=== PATIENT | male | born 1985 | race African-American/Black ===

== ENCOUNTER 2017-01-20 02:01 | Emergency (ER) | payer SELFPAY ==
[2017-01-20] MEDS ORDERED: KETOROLAC TROMETHAMINE 60 MG/2 ML VIAL IM ONE (02:19)
[2017-01-20] MEDS ORDERED: DIAZEPAM 5 MG/ML DISP.SYRIN IM ONE (02:19)
--- NOTE | 2017-01-20 03:09 | ED Physician Documentation ---
General Adult - HISTORIAN Historian: patient - HPI Stated Complaint: LOW BACK PAIN Chief Complaint: General Adult Onset: days ago (1) Timing: still present Severity: moderate Further Comments: yes (Pt is a 31 yo male with L lower back pain. Pt was playing basketball yesterday. He came down from a jump, planting his foot and twisting abruptly, and experienced pain in his lower back.) - ROS CONST: no problems EYES/ENT: none CVS/RESP: none GI/: none MS/SKIN/LYMPH: back pain - PAST HX Past History: none Allergies/Adverse Reactions: Allergies Allergy/AdvReac Type Severity Reaction Status Date / Time No Known Allergies Allergy Verified 01/20/17 02:08 Home Medications: Ambulatory Orders Medication Instructions Recorded NK [NK] 12/15/13 - SOCIAL HX Smoking History: cigarettes - FAMILY HX Family History: No - VITAL SIGNS Vital Signs: Vital Signs Temp Pulse Resp BP Pulse Ox 98.4 F 93 H 16 130/86 98 01/20/17 02:01 01/20/17 02:01 01/20/17 02:01 01/20/17 02:01 01/20/17 02:01 - REVIEWED ASSESSMENTS Nursing Assessment Reviewed: Yes Vitals Reviewed: Yes Progress - Progress Progress: Toradol 60 mg IM Diazepam 10 mg IM improved. ED Results Lab/Radiology - Orders Orders: ED Orders Category Date Time Status Diazepam [Valium] Med 01/20/17 02:19 Discontinued 10 mg IM NOW ONE Ketorolac Tromethamine [Toradol] Med 01/20/17 02:19 Discontinued 60 mg IM NOW ONE General Adult Physical Exam - PHYSICAL EXAM GENERAL APPEARANCE: moderate distress NECK: normal inspection, supple RESPIRATORY: no resp distress, chest non-tender, breath sounds normal CVS: reg rate & rhythm, heart sounds normal BACK: other (muscle spasm L lower back, para spinal. No tenderness over spine.) SKIN: warm/dry, normal color EXTREMITIES: non-tender, normal range of motion, no evidence of injury NEURO: oriented X3, motor nml, sensation nml Discharge Clincal Impression: low back pain/muscle spasm Referrals: Gerald Griffin MD [Primary Care Provider] - Home Medications: Ambulatory Orders NK [NK] 12/15/13 Condition: Good Disposition: 01 HOME, SELF-CARE Decision to Admit: NO Decision Time: 03:09
[2017-01-20 03:19] VITALS: BP 131/83
== END 2017-01-20 03:10 | disposition home or self-care (01) ==
LOC: ED 02:01
DX: M54.5 Low back pain (principal); M62.830 Muscle spasm of back
CPT/HCPCS: J1885; J3360; 96372; 99283